=== PATIENT | male | born 1950 | race Caucasian/White ===

== ENCOUNTER → 2020-08-04 | Outpatient (CLI) | payer MEDICARE ==
[~2020-08-04] MED LIST: IOPAMIDOL 370 MG/ML 200 ML INFUS..BTL INJ ONE; SODIUM CHLORIDE 0.9% 50ML 50 ML ONE
[2020-08-04 08:30] LABS: BLOOD UREA NITROGEN 24 mg/dL (7-26); BUN/CREATININE RATIO 21 (6-25); CREATININE, SERUM 1.12 mg/dL (0.72-1.25); EST GLOMERULAR FILTRATION RATE > 60 ML/MIN (60-)
--- NOTE | 2020-08-04 09:17 | Diagnostic Imaging Report ---
EXAM: CT Chest WITH intravenous contrast 08/04/2020 8:56 AM INDICATION: Shortness of breath, dizziness COMPARISON: None TECHNIQUE: Chest was scanned utilizing a multidetector helical scanner from the lung apex through the level of the adrenal glands after administration of IV contrast. Coronal and sagittal reformations were obtained. Routine protocol was performed. IV CONTRAST: 100mL Isovue 370 RADIATION DOSE: Total DLP: 578 mGy*cm. Dose modulation, iterative reconstruction, and/or weight based adjustment of the mA/kV was utilized to reduce the radiation dose to as low as reasonably achievable. COMPLICATIONS: None FINDINGS: LINES/ TUBES: None. LUNGS AND AIRWAYS: The central airways are patent. No focal consolidation or pulmonary edema. 6 mm right lower lobe subsolid pulmonary nodule (series 3 image 39). 4 mm right middle lobe subsolid pulmonary nodule (series 3 image 43). 4 mm left lower lobe pulmonary nodule (image 44). PLEURA: The pleural spaces are clear. HEART AND MEDIASTINUM: The thyroid gland is normal. No mediastinal, hilar or axillary lymphadenopathy. The heart is normal in size.. There is no pericardial effusion. UPPER ABDOMEN: 1 cm left hepatic cyst. No acute findings in the upper abdomen. BONES: No acute osseous injury. No suspicious lytic or blastic lesions. SOFT TISSUES: Unremarkable. IMPRESSION: No focal pneumonia or pulmonary edema. Bilateral pulmonary nodules measure up to 6 mm. If the patient is high risk, follow-up chest CT in one year is optional. If the patient is low risk, no further follow-up imaging is necessary. Signed by: Justa Owen MD on 08/04/2020 9:14 AM
== END ==
LOC: CT 07:39
PROVIDERS: ATTEND Family Medicine
DX: R06.02 Shortness of breath (principal); R42 Dizziness and giddiness; R91.8 Other nonspecific abnormal finding of lung field
CPT/HCPCS: 36415; 71260; 82565; 84520; Q9967

== ENCOUNTER → 2021-05-22 | Outpatient (CLI) | payer MEDICARE, OTHER | LOC: MRI 12:12 | PROVIDERS: ATTEND Family Medicine | DX: M54.16 Radiculopathy, lumbar region (principal); M41.9 Scoliosis, unspecified; M51.06 Intervertebral disc disorders with myelopathy, lumbar region | CPT/HCPCS: 72148 ==